=== PATIENT | male | born 2005 | race Caucasian/White ===

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

== ENCOUNTER 2025-03-16 20:18 | Emergency (ER) | payer SELFPAY ==
--- OUTSIDE RECORDS SUMMARY | 2025-03-16 20:21 | XMS_ITS | Clinical Summary ---
Author Organization [facility] Address [address] [place] [address] Care Team Providers Care Csr Name Role Phone Girish Segura MD Primary Care Provider [phone] Source Comments [facility],non-owned Affiliates and Associated Physician Practices is amultiple site organization consisting of ambulatory clinics and hospital sitesin [place], [place], [place] and [place]. This disclosure is being madepursuant to the Care Everywhere program and may not contain all information available regarding this patient. Last updated 18.[facility] [employer] Allergies No known active allergies Medications * [...] on file Legal Sex Male 5:45 AM RN HEMATOLOGY Gender Identity Not on file Sexual Orientation Not on file Last Filed Vital Signs Vital Sign Reading Time Taken Comments Blood Pressure 108/72 05/14/2023 2:32 PM RN HEMATOLOGY Pulse 74 08/31/2019 12:49 PM CDT Temperature 36.6 C (97.8 F) 08/31/2019 12:49 PM CDT Respiratory Rate 16 08/31/2019 12:49 PM CDT Oxygen Saturation 98% 08/31/2019 12:49 PM CDT Inhaled Oxygen Concentration - - Weight 69.4 kg (153 lb) 06/07/2023 2:04 PM RN HEMATOLOGY Height 172.7 cm (5' 8) 06/07/2023 2:04 PM RN HEMATOLOGY Body Mass Index 23.26 06/07/2023 2:04 PM RN HEMATOLOGY Body Mass Index Percentile 65.95% 06/07/2023 2:0 4 PM RN HEMATOLOGY Growth Chart: [facility] (Boys, 2-2 0 Years) Plan of Treatment Health Maintenance Due Date Last Done Comments HIV SCREENING 2020 HPV VACCINE (1 - Male 3-dose series) 2020 MENINGOCOCCAL (Group B) VACC INE SHARED DECISION-MAKING (1 of 2 - Standard) 2021 HEPATITIS C SCREENING 04/09/2023 DTAP/TDAP/TD VACCINES (1 - Tdap) 2024 HEPATITIS B VACCINE (1 of 3 - 19+ 3-dose series) 2024 DEPRESSION SCREENING 06/11/2024 COVID-19 VACCINE (1 - 2023-2 5 season) 2025 INFLUENZA VACCINE (#1) 2025 ZOSTER VACCINE (1 of 2) 2055 HIB VACCINE Aged Out No longer eligi ble based on patient's age to complete this topic MENINGOCOCCAL GROUPS A/C/Y/W VACCINE Aged Out No longer eligible b ased on patient's age to complete this topic PNEUMOCOCCAL VACCINE Aged Out No long er eligible based on patient's age to complete this topic Insurance [facility] Care Teams Csr Relationship Specialty Start Date End Date Girish Segura MD PCP - General Pediatrics 01/10/13
--- OUTSIDE RECORDS SUMMARY | 2025-03-16 20:21 | XMS_ITS | Encounter Summary ---
Author Organization [facility] Address [address] [place] [address] Care Team Providers Care Network Applications Specialist Name Role Phone Girish Segura MD Primary Care Provider [phone] Encounter Details Date Type Department Care Team (Late st Contact Info) Description 08/02/[address] [facility] - [address] [address] Buzz De Los Santos MD [address] [place] [id number] Social History Tobacco Use Types Packs/Day Years Used Date Smoking Tobacco: Never Alcohol Use Standard Drinks/Week Comments No 0 (1 standard drink = 0.6 oz pur e alcohol) Sex and Gender Information Value Date Recorded Sex Assigned at Not on file Legal Sex Male 5:45 AM FINANCIAL SERVICES REPRESENTATIVE Gender Identity Not on file Sexual Orientation Not on file documented as of this encounter Miscellaneous Notes * Telephone Encounter - Elenita Jeronimo - 08/02/2015 11:46 AM CST Received PA approval from [place] on Lansoprazole 15MG cap. Duration of approval is 1 year. [employer] notified [phone]. NCIAL SERVICES REPRESENTATIVE documented in this encounter Plan of Treatment Not on file documented as of this encounter Visit Diagnoses Not on filedocumented in this encounter Care Teams Network Applications Specialist Relationship Specialty Start Date End Date Girish Segura MD PCP - General Pediatrics 01/10/13 documented as of this encounter
[2025-03-16 20:45] VITALS: BP 134/61; PULSE 93; RESP 16; TEMP 36.8; O2SAT 99
--- NOTE | 2025-03-17 02:16 | ED.GENADULT ---
HPI - General Adult General Chief complaint: Wound/Laceration Stated complaint: lump on buttock Time Seen by Provider: 03/17/25 01:56 History of Present Illness HPI narrative: Patient is a 19-year-old gentleman presents emergency department chief complaint of rectal pain. Patient reports he has had some blood whenever he wipes reports he has had hemorrhoids reports this one is enlarged and tender to touch Related Data Allergies Allergy/AdvReac Type Severity Reaction Status Date / Time No Known Allergies Allergy Verified 03/16/25 20:19 Review of Systems Review of Systems: A 10 system review of systems was completed on the patient and is negative except for what is stated in the HPI. Nursing and ancillary documentation was reviewed. [facility] Past Medical History Medical History (Updated 03/17/25 @ 02:21 by Judd Freeman MD) History of concussion Social History Social History Substance use: never Exam Narrative: GENERAL: Well-appearing, well-nourished, and in no acute distress. HEAD: Normocephalic, atraumatic. EYES: PERRLA and EOMI. ENT: Nares clear, no rhinorrhea or epistaxis. Mucous membranes moist. NECK: Supple. CHEST: Clear to auscultation. No respiratory distress. HEART: Regular rate and rhythm. No murmur heard. Normal peripheral pulses. ABDOMEN: Soft, nontender, nondistended, normal active bowel sounds. : Hemorrhoid present at the 10 o'clock position does not appear to be thrombosed at this time EXTREMITIES: Normal range of motion. No edema. SKIN: Warm, dry, no rash. NEURO: No focal deficits. Alert and oriented x3. PSYCH: Normal mood and affect. Course Vital Signs Vital signs: Vital Signs Temperature 36.8 C 03/16/25 20:45 Pulse Rate 93 03/16/25 20:45 Respiratory Rate 16 03/16/25 20:45 Blood Pressure 134/61 03/16/25 20:45 Pulse Oximetry 99 03/16/25 20:45 Oxygen Delivery Room Air 03/16/25 20:45 Temperature 36.8 C 03/16/25 20:45 Pulse Rate 93 03/16/25 20:45 Respiratory Rate 16 03/16/25 20:45 Blood Pressure 134/61 03/16/25 20:45 Pulse Oximetry 99 03/16/25 20:45 Oxygen Delivery Room Air 03/16/25 20:45 Medical Decision Making MDM Narrative Medical decision making narrative: Patient has an external hemorrhoid present to the rectal area The patient was started on hydrocortisone ointment and will be instructed to do Sitz baths Vital Signs Vital Signs: Vital Signs Temperature 36.8 C 03/16/25 20:45 Pulse Rate 93 03/16/25 20:45 Respiratory Rate 16 03/16/25 20:45 Blood Pressure 134/61 03/16/25 20:45 Pulse Oximetry 99 03/16/25 20:45 Oxygen Delivery Room Air 03/16/25 20:45 Temperature 36.8 C 03/16/25 20:45 Pulse Rate 93 03/16/25 20:45 Respiratory Rate 16 03/16/25 20:45 Blood Pressure 134/61 03/16/25 20:45 Pulse Oximetry 99 03/16/25 20:45 Oxygen Delivery Room Air 03/16/25 20:45 Discharge Plan Discharge Clinical Impression: External hemorrhoid Patient Disposition: Home Condition: Stable Instructions: Antibiotic Form, Hemorrhoids (ED), Sitz Bath (DC) Additional Instructions: It is recommended that you have a high-fiber diet and can take an dqxd-pzn-jnrzcyi stool softener to help soften her stool. Please do Sitz baths after each bowel movement Patient Language: Tamazight Prescriptions: New hydrocortisone [Anusol-HC] 2.5 % cream with perineal applicator 1 applic RECTAL DAILY PRN (Reason: hemorrhoids) Qty: 30 0RF No Action albuterol sulfate 90 mcg/actuation HFA aerosol inhaler 2 puff inhalation QID PRN (Reason: shortness of breath or wheezing) Qty: 6.7 0RF methylprednisolone [Medrol (Kyle)] 4 mg tablets,dose pack See Rx Instructions .ROUTE .COMPLEX Qty: 21 0RF Rx Instructions: for 6 days Follow-up/Referrals: Girish Segura MD [Primary Care Provider, Pediatrics] [facility] [Other] Felicity Grossman MD [Physician, General Surgery] Time of Disposition: 02:23
== END 2025-03-17 02:29 | disposition home or self-care (01) ==
PROVIDERS: Emergency Provider Emergency Medicine; PCP Pediatrics
DX: K64.4 Residual hemorrhoidal skin tags (principal)
CPT/HCPCS: 99283

== ENCOUNTER 2025-05-24 14:08 | Emergency (ER) | payer SELFPAY ==
--- OUTSIDE RECORDS SUMMARY | 2025-05-24 14:10 | XMS_ITS | Encounter Summary ---
Author Organization [facility] Address [address] [place] [address] Care Team Providers Care Clinical Project Leader Name Role Phone Girish Segura MD Primary Care Provider [phone] Encounter Details Date Type Department Care Team (Late st Contact Info) Description 08/02/2015 Telephone [facility] Pediatrics - [address] [address] Buzz De Los Santos MD [address] [place] [phone] Social History Tobacco Use Types Packs/Day Years Used Date Smoking Tobacco: Never Alcohol Use Standard Drinks/Week Comments No 0 (1 standard drink = 0.6 oz pur e alcohol) Sex and Gender Information Value Date Recorded Sex Assigned at Not on file 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 Duration of approval is 1 year. [employer] notified [phone]. ER TECH documented in this encounter Plan of Treatment Not on file documented as of this encounter Visit Diagnoses Not on filedocumented in this encounter Care Teams Clinical Project Leader Relationship Specialty Start Date End Date Girish Segura MD PCP - General Pediatrics 01/10/13 documented as of this encounter
[2025-05-24 14:18] VITALS: BP 108/71; PULSE 68; RESP 20; TEMP 36.9; O2SAT 99
--- NOTE | 2025-05-24 17:41 | ED.URI ---
HPI - URI/Sore Throat General Chief Complaint: Upper Respiratory Infection Stated Complaint: poss hand foot & mouth Time Seen by Provider: 05/24/25 14:42 Source: patient and RN notes reviewed Mode of arrival: ambulatory Limitations: no limitations History of Present Illness HPI Narrative: 20-year-old male patient presents today complaining 3 day history of fever with a T-max of 100.3?, chills, with a 2 day history of painful rash to his feet and hands, with the rash to his face, headache, and sore throat since yesterday. States he has been taking DayQuil, NyQuil, and cough drops with mild improvement. Denies any known sick contacts. Believes he may have hudz-vojn-krruu. Related Data Allergies Allergy/AdvReac Type Severity Reaction Status Date / Time No Known Allergies Allergy Verified 05/24/25 14:25 [facility] Past Medical History Medical History History of concussion Social History Social History Substance use: never Comments At time of signature, I have reviewed and agree with nursing past medical, surgical, social and family history unless otherwise noted. Please see nursing chart for further information. There is no relevant family history pertinent to the presenting complaint Exam Narrative: GENERAL: Well-appearing, well-nourished, and in no acute distress. HEAD: Normocephalic, atraumatic. EYES: EOMI. No redness or drainage. Conjunctivae normal. ENT: Mucous membranes pink and moist. Nares clear. No rhinorrhea. TMs normal bilaterally. Throat erythematous throat with multiple white vesicular lesions on an erythematous base.. Uvula midline. NECK: Normal AROM. Supple. No lymphadenopathy. CHEST: No respiratory distress. Clear to auscultation. HEART: Regular rate and rhythm. No murmur appreciated. EXTREMITIES: Normal range of motion. No edema. SKIN: Warm, dry. Capillary refill normal. Normal skin turgor. Bilateral hands and feet are covered in tiny papular or vesicular lesions on an erythematous base. Face is covered in vesicles, some of which have ruptured with clear fluid and scabbed over after being scratched. No induration noted. NEURO: No focal deficits. Alert and oriented x3. Gait steady. PSYCH: Normal affect. No signs of depression or anxiety. Course Course Level of Care: Express Care Visit Vital Signs Vital signs: Vital Signs Temperature 98.5 F 05/24/25 14:18 Pulse Rate 68 05/24/25 14:18 Respiratory Rate 20 05/24/25 14:18 Blood Pressure 108/71 05/24/25 14:18 Pulse Oximetry 99 05/24/25 14:18 Oxygen Delivery Room Air 05/24/25 14:18 Temperature 98.5 F 05/24/25 14:18 Pulse Rate 68 05/24/25 14:18 Respiratory Rate 20 05/24/25 14:18 Blood Pressure 108/71 05/24/25 14:18 Pulse Oximetry 99 05/24/25 14:18 Oxygen Delivery Room Air 05/24/25 14:18 Reviewed MDM MDM Narrative Medical decision making narrative: 20-year-old male patient presents today complaining 3 day history of fever with a T-max of 100.3?, chills, with a 2 day history of painful rash to his feet and hands, with the rash to his face, headache, and sore throat since yesterday. States he has been taking DayQuil, NyQuil, and cough drops with mild improvement. Denies any known sick contacts. Believes he may have jxyj-sqgp-fwsec. Upon exam, patient has vesicular lesions the face, bilateral hands and feet, as well as a few in the posterior oropharynx all on erythematous bases. Scabbing to the face. Rash is consistent with hwhz-gatr-smltv. Discussed symptoms induration of illness with as well as eowf-cyj-qicksfe treatment. Patient agrees with plan. Vital signs stable. Anticipatory guidance given. Differential Diagnosis Differential Diagnosis: Bmvb-anox-kvlce, viral exanthem, varicella, impetigo, strep throat, mononucleosis Critical Care Time Critical Care Time Critical Care Time: No Discharge Plan Discharge Clinical Impression: Hand, foot and mouth disease Patient Disposition: Home Condition: Stable Instructions: Hand, Foot, and Mouth Disease (ED) Additional Instructions: You have been diagnosed with pnig-dltk-adkma disease. Take vrls-bhf-albnnxj medications such as Tylenol or ibuprofen for discomfort. You may want to avoid foods such as citrus foods, fried or salty foods as this may irritate your throat. Xtwe-scgf-tzdkm this is virus in it may take 7-10 days from onset for symptoms have fully resolved. You can return to normal activities once the rash has scabbed over. Follow-up with your PCP with any additional concerns. Patient Language: Frisian Prescriptions: No Action hydrocortisone [Anusol-HC] 2.5 % cream with perineal applicator 1 applic RECTAL DAILY PRN (Reason: hemorrhoids) Qty: 30 0RF Follow-up/Referrals: Girish Segura MD [Primary Care Provider, Pediatrics] Stand Alone Forms: Work/School Release IP Time of Disposition: 15:06
== END 2025-05-24 15:21 | disposition home or self-care (01) ==
PROVIDERS: Emergency Provider Nurse Practitioner; PCP Pediatrics
DX: B08.4 Enteroviral vesicular stomatitis with exanthem (principal)
CPT/HCPCS: 99211; G0463